=== PATIENT | male | born 1950 | race Caucasian/White ===

== ENCOUNTER → 2017-04-25 | Outpatient (CLI) | payer BC, MEDICARE ==
--- NOTE | 2017-04-25 09:57 | US ---
EXAMINATION TYPE: US thyroid st tissue head/neck DATE OF EXAM: 04/25/2017 COMPARISON: US 04/22/2015 CLINICAL HISTORY: 66-year-old male, choking feeling, trouble swallowing, R13.10 Dysphagia. Technique: Multiple sonographic images of the thyroid gland are obtained. FINDINGS: Right Lobe: 3.9 x 1.2 x 1.1 cm Overall Parenchyma: heterogenous Left Lobe: 3.5 x 1.1 x 1.2 cm Overall Parenchyma: heterogeneous Isthmus Thickness: 0.3 cm NODULES RIGHT: # of nodules measured on right: 0 LEFT: # of nodules measured on left: 1 1. 0.3 X 0.2 x 0.2 cm hypoechoic cystic nodule at the mid pole with well-defined margins; . This n odule is wider than tall and shows no intranodular vascularity. Prior size: Not previously visualized The previous 1 cm nodule in the left lobe is no longer seen. ISTHMUS: # of nodules measured in the isthmus: 0 Within the right neck, there is a prominent but nonenlarged 1.3 x 0.5 x 0.7 cm, lymph node. IMPRESSION: Slightly small thyroid gland, measurements as above. There is a tiny 3 mm cyst in the left midpole. T he previous left-sided 1 cm nodule is no longer seen.
--- NOTE | 2017-04-25 10:43 | FL ---
EXAMINATION TYPE: FL UGI air w esophagus DATE OF EXAM: 04/25/2017 COMPARISON: NONE HISTORY: Dysphasia food getting stuck in throat for one year TECHNIQUE: A double contrast UGI study is performed. Esophagus is individually evaluated. FINDINGS: Fluoroscopy time: 1 minute 51 seconds. Images: 31 Esophagus dilates to normal caliber has normal contour gastroesophageal junction. Gastroesophageal ju nction opens to normal caliber. During the examination gastroesophageal reflux to the level the clavi cles was observed. Tertiary contractions were observed in the distal esophagus during the examination . There is complete stripping of esophageal bolus in the horizontal drinking position. The fundus body and antrum of the stomach appear normal. Barium readily empties into the normally pos itioned duodenal cap and sweep. A distal second portion of the duodenum diverticulum is evident. IMPRESSION: 1. Gastroesophageal reflux to the level the clavicles. 2. Duodenal diverticulum 3. Mild presbyesophagus.
== END | disposition home or self-care (01) ==
LOC: RADUSMAIN 08:26
PROVIDERS: ATTEND Family Medicine
DX: K21.9 Gastro-esophageal reflux disease without esophagitis (principal); K57.10 Diverticulosis of small intestine without perforation or abscess without bleeding; K22.8 Other specified diseases of esophagus
CPT/HCPCS: 74246; 76536

== ENCOUNTER → 2020-03-12 | Outpatient (CLI) | payer MEDICARE ==
[~2020-03-12] MED LIST: REGADENOSON 0.4 MG/5 ML SYRINGE IV PRN
--- NOTE | 2020-03-12 09:20 | US ---
EXAMINATION TYPE: US carotid duplex BILAT DATE OF EXAM: 03/12/2020 COMPARISON: NONE CLINICAL HISTORY: R09.89 CAROTID BRUIT. Abnormal EKG, carotid bruit EXAM MEASUREMENTS: RIGHT: Peak Systolic Velocity (PSV) cm/sec ----- Right CCA: 94.2 ----- Right ICA: 69.8 ----- Right ECA: 97.0 ICA/CCA ratio: 0.7 RIGHT: End Diastole cm/sec ----- Right CCA: 16.2 ----- Right ICA: 12.5 ----- Right ECA: 0.0 LEFT: Peak Systolic Velocity (PSV) cm/sec ----- Left CCA: 94.0 ----- Left ICA: 65.9 ----- Left ECA: 81.8 ICA/CCA ratio: 0.7 LEFT: End Diastole cm/sec ----- Left CCA: 17.7 ----- Left ICA: 19.0 ----- Left ECA: 6.3 VERTEBRALS (direction of flow): Right Vertebral: Antegrade Left Vertebral: Antegrade Rhythm: Normal Bilateral intimal thickening, plaque bilateral bulb and CCA, no elevated velocities, no significant s tenosis. IMPRESSION: No evidence for hemodynamically significant stenosis. Criteria for Assigning % of Stenosis / Diameter reduction (Estimation based on the indirect measurements of the internal carotid artery velocities (ICA PSV). 1. Normal (no stenosis)=ICA PSV < 125 cm/s: ratio < 2.0: ICA EDV<40 cm/s. 2. Less than 50% stenosis=ICA PSV < 125 cm/s: ratio < 2.0: ICA EDV<40 cm/s. 3. 50 to 69% stenosis=ICA PSV of 125 to 230 cm/s: ration 2.0 ? 4.0: ICA EDV 40-100 cm/s. 4. Greater than 70% stenosis to near occlusion= ICA PSV > 230 cm/s: ratio > 4.0: ICA EDV > 100 cm/s. 5. Near occlusion= ICA PSV velocities may be low or undetectable: variable ratio and ICA EDV. 6. Total occlusion=unable to detect flow.
--- NOTE | 2020-03-12 10:54 | ECHOF ---
Referral Reason:R09.89, R94.31, R01.1 MEASUREMENTS -------- HEIGHT: 170.2 cm WEIGHT: 112.9 kg BP: RVIDd: 3.2 cm (< 3.3) IVSd: 1.5 cm (0.6 - 1.1) LVIDd: 3.6 cm (3.9 - 5.3) LVPWd: 1.4 cm (0.6 - 1.1) IVSs: 1.8 cm LVIDs: 2.4 cm LVPWs: 1.9 cm LA Diam: 3.2 cm (2.7 - 3.8) Ao Diam: 3.4 cm (2.0 - 3.7) AV Cusp: 2.1 cm (1.5 - 2.6) MV EXCURSION: 12.907 mm (> 18.000) MV EF SLOPE: 102 mm/s (70 - 150) EPSS: 0.5 cm MV E Rashawn: 0.80 m/s MV DecT: 234 ms MV A Rashawn: 0.68 m/s MV E/A Ratio: 1.17 AR PHT: 583 ms FINDINGS -------- Sinus rhythm. Resting bradycardia (HR<60bpm). This was a technically difficult study with suboptimal views. The left ventricular size is normal. There is moderate concentric left ventricular hypertrophy. O verall left ventricular systolic function is normal with, an EF between 55 - 60 %. The right ventricle is normal in size. The left atrium is normal in size. The right atrial size is normal. Lumason used Interatrial and interventricular septum intact. There is mild aortic valve sclerosis. There is mild aortic regurgitation. The mitral valve is normal. Mild mitral regurgitation is present. The tricuspid valve appears structurally normal. Mild tricuspid regurgitation present. The pulmonic valve was not well visualized. There is no pulmonic regurgitation present. The aortic root size is normal. Normal inferior vena cava with normal inspiratory collapse consistent with estimated right atrial pre ssure of 5 mmHg. There is no pericardial effusion. CONCLUSIONS -------- 1. This was a technically difficult study with suboptimal views. 2. There is moderate concentric left ventricular hypertrophy. 3. Overall left ventricular systolic function is normal with, an EF between 55 - 60 %. 4. Lumason used 5. There is mild aortic regurgitation. 6. Mild mitral regurgitation is present. 7. Mild tricuspid regurgitation present. 8. There is no pericardial effusion. SPECIAL EDUCATOR: Kelley Shelton RDCS
--- NOTE | 2020-03-12 12:29 | EST ---
EXERCISE STRESS AGE: 69 SEX: Male HT: 5'7" WT: 249 lbs. PROTOCOL: Lexiscan Cardiolite STAGE: N/A DURATION OF EXERCISE: N/A HEART RATE REST: 51 BLOOD PRESSURE REST: 158/76 MAXIMUM HEART RATE ACHIEVED: 75 MAXIMUM BLOOD PRESSURE: 163/79 85% MPHR: 127 100% MPHR: 149 METS: N/A INDICATIONS: Abnormal ECG CLINICAL INFORMATION: Baseline rhythm is sinus mechanism, rate of 51, normal axis and intervals. Normal electrocardiogram. Baseline blood pressure 158/76 mmHg. Patient received injection of Lexiscan. Electrocardiograph monitoring revealed no evidence of diagnostic ischemic ST deviation. Cardiolite was injected per protocol. CONCLUSION: 1. Nondiagnostic electrocardiograph stress testing. 2. Nuclear images will be reported separately. MMODL / IJN: [id number] /
--- NOTE | 2020-03-12 13:28 | NM ---
EXAMINATION TYPE: NM stress lexiscan cardiolite DATE OF EXAM: 03/12/2020 COMPARISON: NONE HISTORY: R09.89, R94.31, R01.1 TECHNIQUE: After the intravenous administration of 9.5 mCi Tc 99m Sestamibi - Cardiolite resting SPE CT images acquired 45 minutes post injection. The patient received 0.4mg Lexiscan, 25.4 mCi Tc 99m Sestamibi - Stress images obtained [address] injection FINDINGS: Review of stress and rest SPECT images demonstrates decreased perfusion involving the cardiac apex an d inferior wall. Stress-induced ischemia is not excluded. Gated analysis shows normal wall motion wit h an estimated left ventricular ejection fraction of 44 %. IMPRESSION: Correlate for stress-induced ischemia.
== END | disposition home or self-care (01) ==
LOC: RADUSWWP 07:11
PROVIDERS: ATTEND Family Medicine
DX: I08.3 Combined rheumatic disorders of mitral, aortic and tricuspid valves (principal); R09.89 Other specified symptoms and signs involving the circulatory and respiratory systems; R94.31 Abnormal electrocardiogram [ECG] [EKG]; R01.1 Cardiac murmur, unspecified
CPT/HCPCS: 93017; 93880; 78452; C8929; A9500; J2785; Q9950; 93306

== ENCOUNTER 2020-04-07 08:20 | Observation (INO) | payer MEDICARE ==
[2020-04-07] MEDS ORDERED: SODIUM CHLORIDE 0.9% 1,000 ML IV ONE (09:47)
[2020-04-07] MEDS ORDERED: SODIUM CHLORIDE 0.9% 1,000 ML IV SCH ×2 (10:00→12:45)
[2020-04-07] MEDS ORDERED: LIDOCAINE 1% INJ 10MG/ML (20 ML MDV) SQ ONE (11:41)
[2020-04-07] MEDS: VERAPAMIL SYRINGE (5 MG/10 ML) INTRAARTER ONE ×2 (11:42→12:26)
[2020-04-07] MEDS ORDERED: MIDAZOLAM 2 MG/2 ML VIAL IV ONE ×2 (11:43→11:49)
[2020-04-07] MEDS ORDERED: BIVALIRUDIN 250 MG in SODIUM CHLORIDE 0.9% 50 ML IV ONE ×2 (11:50→12:16)
[2020-04-07] MEDS ORDERED: BIVALIRUDIN BOLUS 250 MG/50 ML IV ONE (11:50)
[2020-04-07] MEDS ORDERED: IOPAMIDOL-370 125ML BTL INJ ONE (12:15)
[2020-04-07] MEDS ORDERED: TICAGRELOR 90 MG TAB PO ONE (12:30)
[2020-04-07] MEDS ORDERED: IOPAMIDOL-370 50ML BTL INJ ONE (12:31)
[2020-04-07] MEDS ORDERED: ZOLPIDEM 5 MG TAB PO PRN (12:41)
[2020-04-07] MEDS ORDERED: NITROGLYCERIN SL TABS 0.4 MG TAB SUBLINGUAL PRN (12:41)
[2020-04-07] MEDS ORDERED: HYDROcodone/APAP 7.5-325MG 1 EACH TAB PO PRN (12:41)
[2020-04-07] MEDS ORDERED: ATROPINE SULFATE 0.1 MG/ML 10ML SYRINGE IV PRN (12:41)
[2020-04-07] MEDS ORDERED: MAG HYDROX/AL HYDROX/SIMETH 30 ML CUP PO PRN (12:41)
[2020-04-07] MEDS ORDERED: RX INFO: IV CONTRAST WAS GIVEN 1 EACH MISC MISCELLANE PRN (12:41)
[2020-04-07 13:01] LABS: Glucose,Whole Blood 125 mg/dL (75-99)
[2020-04-07 14:39] VITALS: BMI 37.6
--- NOTE | 2020-04-07 15:24 | LTR ---
April 07, 2020 To: Dr. Dorene Recio Re: Lukas Phan (46) Dear Dr. Recio: MrMurtaza Phan underwent today successful stenting of the left anterior descending artery with good angiographic results and without any complication. I want to thank you for allowing me to participate in his care. Please do not hesitate to call if you have any question or concern. Sincerely, Faisal Jacobs M.D. DOROTHEA / JUAN MANUEL: [id number] /
--- NOTE | 2020-04-07 15:26 | PTCA ---
PERCUTANEOUSTRANS CORORONARY ANGIOGRAPHY DATE OF SERVICE: April 07, 2020. PERFORMING PHYSICIAN: Faisal Jacobs MD. PROCEDURE PERFORMED: 1. Atherectomy of the left anterior descending artery using the orbital atherectomy device from [facility]. 2. Successful stenting of the mid left anterior descending artery using 3.0 x 28 mm Xience drug-eluting stent with excellent angiographic results. 3. Successful stenting of the proximal left anterior descending artery using 3.25 x 15 mm Xience drug-eluting stent with an excellent angiographic results. 4. Post dilatation of both stents using 3.5 mm NC balloon. INDICATION: This is a 69-year-old gentleman with hypertension and dyslipidemia who was seen in the office recently where he was complaining of shortness of breath with exertion. 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 Because of that, he was brought today to undergo an intervention. APPROACH: Right radial artery. COMPLICATION: None. LEVEL OF SEDATION: Moderate with sedation length of 47 minutes. PROCEDURE DESCRIPTION: After obtaining an informed consent, the patient was brought to the cardiac catheterization laboratory technician. The patient was brought from [facility] with a right radial sheath suture. The sheath was flushed and subsequently I gave the patient 2 mg of verapamil IA. Subsequently I started Angiomax with bolus and drip per protocol. Subsequently, I did engage the left main using an XB3 guide. I did wire the LAD using a Whisper wire. Subsequently the Whisper wire was exchanged into a ViperWire using Teleport catheter. After that I did atherectomy of the left anterior descending artery using the orbital atherectomy device and I did 3 runs under low speed. Balloon angioplasty was performed using 2.5 x 15 mm balloon before I deployed in the mid LAD 3.0 x 28 mm Xience drug-eluting stent and in the proximal 3.25 x 15 mm Xience drug-eluting stent. Both the stents were dilated using 3.5 mm NC balloon. The following angiogram showed excellent angiographic results and the procedure was completed without any complication. POSTPROCEDURE MANAGEMENT: 1. Dual anti-platelet therapy. 2. Risk factor modifications. 3. Follow up with the patient. MMODL / IJN: [id number] /
[2020-04-07 16:43] LABS: Glucose,Whole Blood 124 mg/dL (75-99)
[2020-04-07] MEDS ORDERED: TICAGRELOR 90 MG TAB PO SCH (21:00)
[2020-04-08 06:06] LABS: Basophils % (A) 0 %; Eosinophils # (A) 0.1 k/uL (0-0.7); Eosinophils % (A) 2 %; HCT 39.2 % (39.0-53.0); HGB 13.8 gm/dL (13.0-17.5); Lymphocytes # (A) 1.3 k/uL (1.0-4.8); Lymphocytes % (A) 22 %; MCH 34.2 pg (25.0-35.0); MCHC 35.2 g/dL (31.0-37.0); MCV 97.2 fL (80.0-100.0); Mean Platelet Volume 8.4; Monocytes # (A) 0.5 k/uL (0-1.0); Monocytes % (A) 8 %; Neutrophils # (A) 3.9 k/uL (1.3-7.7); Neutrophils % (A) 66 %; Platelet Count 142 k/uL (150-450); RBC 4.03 m/uL (4.30-5.90); WBC 5.8 k/uL (3.8-10.6)
[2020-04-08 06:17] VITALS: RESP 16
[2020-04-08 06:20] LABS: African American GFR (CKD) >90 (>60 ml/min/1.73 sqM); Anion Gap 6 mmol/L; Blood Urea Nitrogen 12 mg/dL (9-20); Carbon Dioxide 26 mmol/L (22-30); Chloride 108 mmol/L (98-107); Glucose 147 mg/dL (74-99); Non-African American GFR(CKD) 89 (>60 ml/min/1.73 sqM); Sodium 140 mmol/L (137-145)
[2020-04-08] MEDS ORDERED: LEVOTHYROXINE 100 MCG TAB PO SCH (06:30)
[2020-04-08 07:03] LABS: Glucose,Whole Blood 147 mg/dL (75-99)
[2020-04-08 08:17] VITALS: BP 134/71; TEMP 97.6
[2020-04-08] MEDS ORDERED: LINAGLIPTIN 5 MG TABLET PO SCH (09:00)
[2020-04-08] MEDS ORDERED: ASPIRIN 81 MG PO SCH (09:00)
[2020-04-08] MEDS ORDERED: METOPROLOL TARTRATE 25 MG TAB PO SCH (09:00)
[2020-04-08] MEDS ORDERED: GLIMEPIRIDE 2 MG TAB PO SCH (09:00)
[2020-04-08] MEDS ORDERED: ATORVASTATIN 20 MG TAB PO SCH (09:00)
[2020-04-08] MEDS ORDERED: allopurinoL 100 MG TAB PO SCH (09:00)
[2020-04-08] MEDS ORDERED: SITAGLIPTIN PHOSPHATE 100 MG PO SCH (09:00)
[2020-04-08 09:59] VITALS: PULSE 60
--- NOTE | 2020-04-08 10:02 | DS ---
DISCHARGE SUMMARY ADMISSION DATE: April 07, 2020. DISCHARGE DATE: April 08, 2020. BRIEF HISTORY: This is a 69-year-old gentleman who was experiencing shortness of breath and underwent myocardial perfusion imaging stress test that revealed an anterior ischemia. 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 Subsequently, the patient underwent atherectomy and stenting of the LAD with good angiographic results and without any complication from right radial approach. He is going to be discharged home today on dual anti-platelet therapy and I will follow up with the patient next week in the office. MMODL / IJN: [id number] /
== END 2020-04-08 09:56 | disposition home or self-care (01) ==
LOC: 2ORMAIN 09:46 → 6NMEDSUR 12:32
PROVIDERS: ADMIT Internal Medicine Interventional Cardiology; ATTEND Internal Medicine Interventional Cardiology
DX: I25.10 Atherosclerotic heart disease of native coronary artery without angina pectoris (principal); I10 Essential (primary) hypertension; E78.2 Mixed hyperlipidemia; R94.31 Abnormal electrocardiogram [ECG] [EKG]; E11.9 Type 2 diabetes mellitus without complications; Z79.899 Other long term (current) drug therapy; Z79.1 Long term (current) use of non-steroidal anti-inflammatories (NSAID); Z79.891 Long term (current) use of opiate analgesic; Z79.890 Hormone replacement therapy; Z79.84 Long term (current) use of oral hypoglycemic drugs
CPT/HCPCS: 80048; 85025; 93005